=== PATIENT | female | born 1985 | race American Indian/Alaskan Native ===

== ENCOUNTER 2018-12-18 08:37 | Emergency (ER) | payer SELFPAY ==
[2018-12-18 08:50] VITALS: BP 125/73
--- NOTE | 2018-12-18 10:37 | Emergency Department Report ---
HPI - General Chief Complaint: Extremity Problem,Nontraumatic Time Seen by Provider: 12/18/18 09:20 - HPI HPI: 33-year-old female presents to the emergency department with a complaint of left lower leg pain, from the posterior knee down to the ankle, that started this morning upon waking. She denies any recent injury. There is a family history of blood clots. She denies any past medical history. She has not taken anything for her symptoms prior to arrival. No recent travel, surgery or immobility. She denies any swelling or skin color change. ED Past Medical Hx - Social History Smoking Status: Never Smoker Substance Use Type: None ED Review of Systems ROS: Stated complaint: L LEG PAIN Other details as noted in HPI Comment: All other systems reviewed and negative Constitutional: denies: chills, fever Musculoskeletal: arthralgia, myalgia. denies: joint swelling Skin: denies: rash, change in color Neurological: denies: numbness, paresthesias Physical Exam - Physical Exam Vital Signs: Vital Signs 12/18/18 08:47 Temperature 98.4 F Pulse Rate 87 Respiratory 16 Rate Blood Pressure 125/73 O2 Sat by Pulse 100 Oximetry Physical Exam: GENERAL: The patient is well-developed well-nourished. HENT: Normocephalic. Atraumatic. Patient has moist mucous membranes. EYES: Extraocular motions are intact. NECK: Supple. Trachea is midline. CHEST/LUNGS: Clear to auscultation. There is no respiratory distress noted. HEART/CARDIOVASCULAR: Regular. There is no tachycardia. There is no murmur. ABDOMEN: There is no abdominal distention. SKIN: There is some mild left lower extremity swelling from the knee distally. NEURO: The patient is awake, alert, and oriented. The patient is cooperative. The patient has no focal neurologic deficits. The patient has normal speech. MUSCULOSKELETAL: There is some tenderness to palpation to the posterior left knee and left calf. There is no limitation range of motion. There is no evidence of acute injury. ED Course Vital Signs 12/18/18 08:47 Temperature 98.4 F Pulse Rate 87 Respiratory 16 Rate Blood Pressure 125/73 O2 Sat by Pulse 100 Oximetry ED Medical Decision Making - Radiology Data Radiology results: report reviewed DUPLEX DOPPLER LOWER EXTREMITY VEINS, LEFT INDICATION / CLINICAL INFORMATION: Pain, + Leslye, family hx DVT/PE. TECHNIQUE: Duplex doppler imaging was performed through the veins of the left lower extremity using venous compression and other maneuvers. Right lower extremity was also evaluated. COMPARISON: None available. FINDINGS: COMMON FEMORAL VEIN: Negative. FEMORAL VEIN: Negative. POPLITEAL VEIN: Negative. CALF VEINS: Negative. ADDITIONAL FINDINGS: Right lower extremity was also evaluated. There is no DVT in the right lower extremity. IMPRESSION: 1. No sonographic evidence for DVT in the left lower extremity. - Medical Decision Making This patient presents with left leg pain from the knee down to the ankle that started this morning. She has no risk factors for DVT. No obvious signs of injury. She does have some tenderness to palpation to the posterior knee and calf. Bilateral lower cavity venous Dopplers were completed that were negative for DVT. Patient was given a referral for orthopedist. She will return to the ER with any worsening of her symptoms or any acute distress. - Differential Diagnosis DVT, venous stasis, cellulitis, bursitis Critical Care Time: No Critical care attestation.: If time is entered above; I have spent that time in minutes in the direct care of this critically ill patient, excluding procedure time. ED Disposition Clinical Impression: Pain of left lower extremity Disposition: DC-01 TO HOME OR SELFCARE Is pt being admited?: No Condition: Stable Instructions: Arthralgia (ED) Additional Instructions: Please follow-up with your primary care physician in the next few days. I am giving a referral for a local orthopedist, Dr. Sarmiento, to follow up regarding your left leg pain. Return to the emergency Department with any worsening of your symptoms or any acute distress. Referrals: ASHLY SARMIENTO MD [Staff Physician] - 2-3 Days Time of Disposition: 11:03
--- NOTE | 2018-12-18 10:57 | Vascular Lab Report ---
DUPLEX DOPPLER LOWER EXTREMITY VEINS, LEFT INDICATION / CLINICAL INFORMATION: Pain, + Leslye, family hx DVT/PE. TECHNIQUE: Duplex doppler imaging was performed through the veins of the left lower extremity using venous compr ession and other maneuvers. Right lower extremity was also evaluated. COMPARISON: None available. FINDINGS: COMMON FEMORAL VEIN: Negative. FEMORAL VEIN: Negative. POPLITEAL VEIN: Negative. CALF VEINS: Negative. ADDITIONAL FINDINGS: Right lower extremity was also evaluated. There is no DVT in the right lower ext remity. IMPRESSION: 1. No sonographic evidence for DVT in the left lower extremity. Signer Name: Mukund Vergara MD Signed: 12/18/2018 10:52 AM Workstation Name: [id number]
== END 2018-12-18 11:21 | disposition home or self-care (01) ==
LOC: ED 08:37
DX: M79.662 Pain in left lower leg (principal)
CPT/HCPCS: 99283